=== PATIENT | female | born 1985 | race Caucasian/White ===

== ENCOUNTER 2020-08-13 06:41 | Inpatient (IN) | payer SELFPAY ==
[2020-08-13] MEDS ORDERED: Nalbuphine 10 MG/1 ML Vial IVPUSH PRN (06:47)
[2020-08-13] MEDS ORDERED: Lidocaine 1% 50 ML MDV INJECT ONE (06:47)
[2020-08-13] MEDS ORDERED: Sodium Chloride 0.9% 10 ML Syringe FLUSH PRN (06:47)
[2020-08-13] MEDS ORDERED: Lactated Ringers 1,000 ML IV SCH (07:00)
[2020-08-13] MEDS ORDERED: Oxytocin/Lactated Ringers 10 UNIT/1,000 ML BAG IV SCH (07:00)
[2020-08-13] MEDS ORDERED: Oxytocin/Lactated Ringers 10 UNIT/1,000 ML BAG IV ONE (07:40)
[2020-08-13] MEDS ORDERED: Lidocaine 1% 50 ML MDV ONE (10:21)
--- NOTE | 2020-08-13 10:55 | PCM.LDHP ---
L&D History of Present Illness - General Date of Service: 08/13/20 Admit Problem/Dx: Patient Status Order with Admit Dx/Problem 08/13/20 06:48 Patient Status [ADT] Routine Admission Diagnosis/Problem Admission Diagnosis/Problem - History of Present Illness Introduction:: 35 year old at 41w1 presented in active labor at 7 cm. Prior , desires TOLAC. Declines any intervention. Would agree to IV. Understands risks of need for repeat H&P Review of Systems - Review of Systems: Review Of Systems: See Below General: Reports: No Symptoms HEENT: Reports: No Symptoms Pulmonary: Reports: No Symptoms Cardiovascular: Reports: No Symptoms Gastrointestinal: Reports: No Symptoms Genitourinary: Reports: No Symptoms Musculoskeletal: Reports: No Symptoms Skin: Reports: No Symptoms Psychiatric: Reports: No Symptoms Neurological: Reports: No Symptoms Hematologic/Lymphatic: Reports: No Symptoms Immunologic: Reports: No Symptoms L&D Exam - Exam Exam: See Below - OB Specific Contraction Intensity: Moderate to Strong Movement: Active Heart Tones: Present Heart Rate (FHR) Variability: Moderate (6-25 bmp) Presentation: Vertex - Renee Score Renee Score Cervix Position: Anterior Renee Score Effacement: >80% Renee Score Dilation: > 5 cm Renee Score Infant's Station: -2 - Exam General: Alert, Oriented HEENT: PERRLA, Conjunctiva Clear, EACs Clear, EOMI, Hearing Intact, Mucosa Moist & [place], Nares Patent, Normal Nasal Septum, Posterior Pharynx Clear, TMs Clear Neck: Supple, Trachea Midline Lungs: Clear to Auscultation, Normal Respiratory Effort Cardiovascular: Regular Rate, Regular Rhythm GI/Abdominal Exam: Normal Bowel Sounds, Soft, Non-Tender, No Organomegaly, No Distention, No Abnormal Bruit, No Mass, Pelvis Stable Genitourinary: Normal external exam, Normal bimanual exam, Normal speculum exam Back Exam: Normal Inspection, Full Range of Motion Extremities: Normal Inspection, Normal Range of Motion, Non-Tender, No Pedal Edema, Normal Capillary Refill Skin: Warm, Dry, Intact Neurological: Cranial Nerves Intact, Reflexes Equal Bilateral Psychiatric: Alert, Normal Affect, Normal Mood - Patient Data Lab Results Last 24 hrs: Laboratory Results - last 24 hr 08/13/20 08/13/20 08/13/20 Range/Units 06:55 07:10 07:10 WBC 16.09 H (3.98-10.04) K/mm3 RBC 4.12 (3.98-5.22) M/mm3 Hgb 13.1 (11.2-15.7) gm/dl Hct 39.1 (34.1-44.9) % MCV 94.9 H (79.4-94.8) fl MCH 31.8 (25.6-32.2) pg MCHC 33.5 (32.2-35.5) g/dl RDW Std Deviation 45.7 (36.4-46.3) fL Plt Count 224 (182-369) K/mm3 MPV 10.7 (9.4-12.3) fl Neut % (Auto) 89.7 H (34.0-71.1) % Lymph % (Auto) 6.3 L (19.3-51.7) % [place] % (Auto) 3.8 L (4.7-12.5) % Eos % (Auto) 0.1 L (0.7-5.8) Baso % (Auto) 0.1 (0.1-1.2) % Neut # (Auto) 14.44 H (1.56-6.13) K/mm3 Lymph # (Auto) 1.02 L (1.18-3.74) K/mm3 [place] # (Auto) 0.61 H (0.24-0.36) K/mm3 Eos # (Auto) 0.01 L (0.04-0.36) K/mm3 Baso # (Auto) 0.01 (0.01-0.08) K/mm3 Manual Slide Review Abnormal smear SARS-CoV-2 RNA (ANALI) Negative (NEGATIVE) Blood Type O POSITIVE Gel Antibody Screen Negative Result Diagrams: 08/13/20 07:10 Problem List Initiated/Reviewed/Updated: Yes Orders Last 24hrs: Active Orders 24 hr Category Date Time Status Patient Status [ADT] Routine ADT 08/13/20 06:48 Active Activity as Tolerated [RC] PFP Care 08/13/20 06:47 Active Communication Order [RC] ASDIRECTED Care 08/13/20 06:47 Active Heart Tones [RC] ASDIRECTED Care 08/13/20 06:48 Active Non Stress Test [RC] PER UNIT ROUTINE Care 08/13/20 06:47 Active Notify Provider [RC] PFP Care 08/13/20 06:47 Active Notify Provider [RC] PRN Care 08/13/20 06:47 Active Peripheral IV Care [RC] . DIRECTED Care 08/13/20 06:48 Active Vital Signs [RC] PER UNIT ROUTINE Care 08/13/20 06:47 Active PATIENT RETYPE [BBK] Routine Lab 08/13/20 08:54 Ordered RAPID PLASMA REAGIN,RPR [CHEM] Routine Lab 08/13/20 07:10 Received Lactated Ringers [Ringers, Lactated] 1,000 ml Med 08/13/20 07:00 Pending IV ASDIRECTED Lidocaine 1% [Xylocaine 1%] Med 08/13/20 06:47 Once 50 ml INJECT ONETIME ONE Nalbuphine [Nubain] Med 08/13/20 06:47 Ordered 10 mg IVPUSH Q2H PRN Oxytocin/Lactated Ringers [Pitocin in LR 10 Units/1,000 Med 08/13/20 07:00 Ordered ML] 10 unit in 1,000 ml IV .CONTINUOUS Sodium Chloride 0.9% [Saline Flush] Med 08/13/20 06:47 Ordered 10 ml FLUSH ASDIRECTED PRN Electronic Heart Tones Ext w TOCO [WOMSER] Oth 08/13/20 06:47 Ordered Routine Electronic Heart Tones Internal [WOMSER] Per Unit Oth 08/13/20 06:47 Ordered Routine Peripheral IV Insertion Adult [OM.PC] Routine Oth 08/13/20 06:47 Ordered Resuscitation Status Routine Resus Stat 08/13/20 06:47 Ordered Medication Orders Oxytocin/Lactated Ringer's (Pitocin In Lr 10 Units/1,000 Ml) 10 unit in 1,000 mls @ 500 mls/hr IV .CONTINUOUS ABELARDO Lactated Ringer's (Ringers, Lactated) 1,000 mls @ 100 mls/hr IV ASDIRECTED ABELARDO Lidocaine HCl (Lidocaine 1% 50 Ml Mdv) 50 ml INJECT ONETIME ONE Stop: 08/13/20 06:48 Nalbuphine HCl (Nalbuphine 10 Mg/1 Ml Vial) 10 mg IVPUSH Q2H PRN PRN Reason: Pain Sodium Chloride (Sodium Chloride 0.9% 10 Ml Syringe) 10 ml FLUSH ASDIRECTED PRN PRN Reason: Keep Vein Open Assessment/Plan Comment:: Admit. Labs. Risks/benefits alteratives of TOLAC discussed. Desires.
--- NOTE | 2020-08-13 10:59 | PCM.SN.2 ---
- Free Text/Narrative Note: Stage I - Patient presented in active labor. TOLAC. Progressed to complete with overall reassuring heart tones. IV fluids. Stage II - I was called for delivery at 1007. Proceeded to labor and delivery. Delivery of viable female, weight pending, APGARS 8/9 at 1008. Delivered via nurse with patient standing bent over bed. To maternal abdomen upon my arrival after positioning mom in bed. Patient desired cord to remain intact until fully white. 2nd degree midline laceration repaired with 3-0 vicryl. Cord clamped and cut by father at 1038. Patient refuses any intervention or traction on umbilical cord to facilitate placenta delivery. Had discussed risks of increased bleeding. Patient voices understanding. Also declines pitocin. Stage III - of intact placenta. 3v cord. About 300 mL blood and clot after placenta. No pitocin given.
[2020-08-13] MEDS ORDERED: Benzocaine/Menthol 20%-0.5% Spray 56 GM Canister TOP PRN (12:50)
[2020-08-13] MEDS ORDERED: Witch Hazel Medicated Pads 40/Jar TOP PRN (12:50)
[2020-08-13] MEDS: Ibuprofen 600 MG Tab PO PRN ×2 (16:45→22:47)
[2020-08-13] MEDS: Docusate Sodium 100 MG Cap PO PRN (20:56)
[2020-08-13] MEDS: Acetaminophen 325 MG Tab PO PRN (20:56)
[2020-08-14] MEDS: Acetaminophen 325 MG Tab PO PRN (08:16)
[2020-08-14] MEDS: Docusate Sodium 100 MG Cap PO PRN (08:16)
--- NOTE | 2020-08-14 09:01 | PCM.SN.2 ---
- Free Text/Narrative Note: Post Progress Note PPD #1 Subjective: Doing well overall. Ambulating without difficulty. Lochia minimal. Voiding without difficulty. Tolerating regular diet without nausea or vomiting. Pain controlled with oral medications. Breast-feeding with minimal difficulty. Objective: Vitals: Vital Signs - 24 hr 08/13/20 08/13/20 08/13/20 14:30 16:30 20:55 Temperature 37.4 C Temperature [ 37.2 C 37.2 C Temporal] Pulse, 96 Peripheral Pulse, 118 H 97 Peripheral [ Pulse Oximetry] Respiratory 16 14 17 Rate Blood Pressure 96/55 L Blood Pressure 113/67 112/64 [Right Arm] O2 Sat by Pulse 99 99 97 Oximetry 08/13/20 08/14/20 22:50 08:19 Temperature 36.6 C 37.1 C Temperature [ Temporal] Pulse, 85 90 Peripheral Pulse, Peripheral [ Pulse Oximetry] Respiratory 17 16 Rate Blood Pressure 110/65 101/50 L Blood Pressure [Right Arm] O2 Sat by Pulse 99 98 Oximetry Physical Exam General: Alert and oriented, no acute distress Lungs: Clear to auscultation bilaterally Heart: Regular rate and rhythm Abdomen: Soft, minimal appropriate tenderness, non-distended, fundus midline, nontender, and at the umbilicus Extremities: Trace edema in bilateral lower extremities to mid shins, no calf tenderness bilaterally Laboratory Results - last 24 hr 08/13/20 Range/Units 07:10 RPR Non-reactive (NONREACTIVE) ASSESSMENT: 35-year-old female -0-0-2 s/p normal vaginal delivery after section PPD #1, complicated by history of section PLAN: Doing well Breast-feeding with minimal difficulty. Assist as needed Lochia minimal. Continue to monitor for appropriate lochia. Continue routine care Anticipate discharge home today Francesco Fisher MD 9:01 AM 08/14/2020
--- NOTE | 2020-08-14 09:07 | PCM.DCSUM1 ---
Discharge Summary - Hospital Course Free Text/Narrative:: Stage I - Patient presented in active labor. TOLAC. Progressed to complete with overall reassuring heart tones. IV fluids. Stage II - I was called for delivery at 1007. Proceeded to labor and delivery. Delivery of viable female, weight pending, APGARS 8/9 at 1008. Delivered via nurse with patient standing bent over bed. To maternal abdomen upon my arrival after positioning mom in bed. Patient desired cord to remain intact until fully white. 2nd degree midline laceration repaired with 3-0 vicryl. Cord clamped and cut by father at 1038. Patient refuses any intervention or traction on umbilical cord to facilitate placenta delivery. Had discussed risks of increased bleeding. Patient voices understanding. Also declines pitocin. Stage III - of intact placenta. 3v cord. About 300 mL blood and clot after placenta. No pitocin given. Diagnosis: Stroke: No - Discharge Data Discharge Date: 08/14/20 Discharge Disposition: Home, Self-Care 01 Condition: Good - Referral to Home Health Primary Care Physician: Marilee Maldonado MD - Discharge Diagnosis/Problem(s) (1) 41 weeks gestation of SNOMED Code(s): 01818135 ICD Code: Z3A.41 - 41 WEEKS GESTATION OF Status: Acute Current Visit: Yes (2) Vaginal delivery following previous section, delivered SNOMED Code(s): 426798157 ICD Code: O34.219 - MATERNAL CARE FOR UNSP TYPE SCAR FROM PREVIOUS DEL Status: Acute Current Visit: Yes (3) Vaginal delivery SNOMED Code(s): 929024207 ICD Code: O80 - ENCOUNTER FOR FULL-TERM UNCOMPLICATED DELIVERY Status: Acute Current Visit: Yes - Patient Summary/Data Complications: None Consults: None Hospital Course: Sallie Madden was admitted for active labor. On admission her cervix was dilated to 7 cm. She was GBS negative. She had spontaneous rupture of membranes with clear fluid. She progressed to complete and began pushing. On 08/13/2020 she had a normal vaginal delivery after section of a live female infant at 10:08. Apgars of 8 and 9. Weight of 3930 g (8 pounds 10.6 ounces). Her course was uneventful. Her pain was well controlled and she had minimal lochia. She was ambulating, tolerating a regular diet and voiding normally. She was breast-feeding with minimal difficulty. She was afebrile and her hematocrit was 39.1 on admission. She desired to be discharged home on the morning of PPD #1. Her blood type is O+. - Patient Instructions Diet: Regular Diet as Tolerated Activity: Apply Ice, As Tolerated Activity, Other: Nothing in the vagina for 6 weeks Driving: May Drive Today Showering/Bathing: May Shower Notify Provider of: Fever, Increased Pain, Swelling and Redness, Drainage, Nausea and/or Vomiting Other/Special Instructions: Please contact your physician's office if you have heavy vaginal bleeding enough to soak a pad in less than an hour for several hours. Monitor for any signs of an infection in the breasts with severe pain or redness of the breast. - Discharge Plan *PRESCRIPTION DRUG MONITORING PROGRAM REVIEWED*: Not Applicable *COPY OF PRESCRIPTION DRUG MONITORING REPORT IN PATIENT ROCIO: Not Applicable Home Medications: Home Meds Cholecalciferol (Vitamin D3) [Vitamin D] 1 tab PO DAILY 08/13/20 [History] Cod Liver Oil 1 cap PO DAILY 08/13/20 [History] Pnv No.95/Ferrous Fum/Folic AC [ Vitamin Tablet] 1 tab PO DAILY 08/13/20 [History] Acetaminophen [Tylenol] 650 mg PO Q6H PRN tablet 08/14/20 [Rx] Benzocaine/Menthol [Dermoplast Pain Relief [place]] 1 spray TOP ASDIRECTED PRN canister 08/14/20 [Rx] Docusate Sodium [Colace] 100 mg PO BID PRN cap 08/14/20 [Rx] Ibuprofen [Motrin] 600 mg PO Q6H PRN tablet 08/14/20 [Rx] witch Stefany [Tucks] 1 pad TOP ASDIRECTED PRN pad 08/14/20 [Rx] Patient Handouts: and Self-Care, Care After Vaginal Delivery Referrals: Marilee Maldonado MD [Primary Care Provider] - (Follow-up in 2 to 6 weeks for routine visit or earlier as needed) - Discharge Summary/Plan Comment DC Time >30 min.: No - Patient Data Vitals - Most Recent: Last Vital Signs Temp 37.1 C 08/14/20 08:19 Pulse 90 08/14/20 08:19 Resp 16 08/14/20 08:19 BP 101/50 L 08/14/20 08:19 Pulse Ox 98 08/14/20 08:19 Weight - Most Recent: 77.564 kg I&O - Last 24 hours: Intake & Output 08/13/20 08/14/20 08/14/20 22:59 06:59 14:59 Intake Total 120 Output Total 759 Balance -639 Lab Results - Last 24 hrs: Laboratory Results - last 24 hr 08/13/20 Range/Units 07:10 RPR Non-reactive (NONREACTIVE) Med Orders - Current: Current Medications Acetaminophen (Acetaminophen 325 Mg Tab) 650 mg PO Q4H PRN PRN Reason: mild pain or fever Last Admin: 08/14/20 08:16 Dose: 650 mg Documented by: Benzocaine/Menthol (Benzocaine/Menthol 20%-0.5% [place] 56 Gm Canister) 0 gm TOP ASDIRECTED PRN PRN Reason: Perineal Comfort Measure Last Admin: 08/13/20 16:40 Dose: 1 can Documented by: Docusate Sodium (Docusate Sodium 100 Mg Cap) 100 mg PO BID PRN PRN Reason: Constipation Last Admin: 08/14/20 08:16 Dose: 100 mg Documented by: Ibuprofen (Ibuprofen 600 Mg Tab) 600 mg PO Q6H PRN PRN Reason: Mild pain or fever Last Admin: 08/13/20 22:47 Dose: 600 mg Documented by: Asael Mastel (Witch Stefany Medicated Pads 40/Jar) 1 pad TOP ASDIRECTED PRN PRN Reason: Perineal Comfort Measure Last Admin: 08/13/20 16:39 Dose: 1 tub Documented by: Discontinued Medications Oxytocin/Lactated Ringer's (Pitocin In Lr 10 Units/1,000 Ml) 10 unit in 1,000 mls @ 500 mls/hr IV .CONTINUOUS ABELARDO Lactated Ringer's (Ringers, Lactated) 1,000 mls @ 100 mls/hr IV ASDIRECTED ABELARDO Oxytocin/Lactated Ringer's (Pitocin In Lr 10 Units/1,000 Ml) Confirm Administered Dose 10 unit in 1,000 mls @ as directed IV .STK-MED ONE Stop: 08/13/20 07:41 Last Admin: 08/13/20 16:20 Dose: Not Given Documented by: Lidocaine HCl (Lidocaine 1% 50 Ml Mdv) 50 ml INJECT ONETIME ONE Stop: 08/13/20 06:48 Last Admin: 08/13/20 16:19 Dose: Not Given Documented by: Lidocaine HCl (Lidocaine 1% 50 Ml Mdv) Confirm Administered Dose 50 ml .ROUTE .STK-MED ONE Stop: 08/13/20 10:22 Last Admin: 08/13/20 10:30 Dose: 50 ml Documented by: Nalbuphine HCl (Nalbuphine 10 Mg/1 Ml Vial) 10 mg IVPUSH Q2H PRN PRN Reason: Pain Sodium Chloride (Sodium Chloride 0.9% 10 Ml Syringe) 10 ml FLUSH ASDIRECTED PRN PRN Reason: Keep Vein Open
== END 2020-08-14 12:10 | disposition home or self-care (01) | DRG 807 ==
LOC: JD.OBCHECK 06:41 → JD.OB 06:44 → JD.OBCHECK 06:48 → OBSVTOIN 10:08 → JD.MS 10:09 → UNDODISIN 08-14 12:10
PROVIDERS: ADMIT Obstetrics & Gynecology; ATTEND Obstetrics & Gynecology
PROC: 10E0XZZ Delivery of Products of Conception, External Approach (ICD-10-PCS; principal; 2020-08-13)
PROC: 0KQM0ZZ Repair Perineum Muscle, Open Approach (ICD-10-PCS; 2020-08-13)
DX: O34.219 Maternal care for unspecified type scar from previous cesarean delivery (principal); Z37.0 Single live birth; Z3A.41 41 weeks gestation of pregnancy; O70.1 Second degree perineal laceration during delivery; Z20.822 Contact with and (suspected) exposure to COVID-19
CPT/HCPCS: 36415; 59025; 59409; 85025; 86592; 86850; 86900; 86901; A9270-GY; J2001; U0002